=== PATIENT | female | born 1995 | race Caucasian/White ===

== ENCOUNTER 2019-02-08 16:14 | Observation (INO) | payer SELFPAY ==
[~2019-02-08] VITALS: Ht 160 cm; Wt 89.3 kg
[2019-02-08] MEDS ORDERED: LACTATED RINGERS 1,000 ML IV ONE (18:25)
[2019-02-08] MEDS ORDERED: ONDANSETRON 4 MG (ZOFRAN) ORAL DISSOLVE TAB SL STA (18:39)
[2019-02-08] MEDS ORDERED: FAMOTIDINE 20MG/2ML IV (PEPCID) IV STA (18:39)
[2019-02-08] MEDS ORDERED: ANTACID SUSP 30 ML UDC (MYLANTA) PO ONE (18:45)
[2019-02-08] MEDS ORDERED: LIDOCAINE 2% VISCOUS 15 ML UDC PO ONE (18:45)
[2019-02-08 18:46] LABS: BILIRUBIN,URINE NEGATIVE (NEGATIVE); CLARITY,URINE CLEAR; COLOR,URINE YELLOW; GLUCOSE, URINE (UA) NEGATIVE (NEGATIVE); KETONES,URINE NEGATIVE (NEGATIVE); LEUKOCYTE ESTERASE ,URINE TRACE (NEGATIVE); NITRITE,URINE NEGATIVE (NEGATIVE); PROTEIN,URINE TRACE (NEGATIVE)
[2019-02-08 18:56] LABS: ALANINE AMINOTRANSFERASE 23 U/L (0-55); ALBUMIN 4.3 GM/DL (3.2-4.5); ALKALINE PHOSPHATASE 57 U/L (40-136); BUN/CREATININE RATIO 16; CALCIUM 9.1 MG/DL (8.5-10.1); CARBON DIOXIDE 18 MMOL/L (21-32); CHLORIDE 101 MMOL/L (98-107); CREATININE SERUM 0.75 MG/DL (0.60-1.30); GFR ESTIMATED > 60; GLUCOSE 100 MG/DL (70-105); POTASSIUM 3.4 MMOL/L (3.6-5.0); SODIUM 134 MMOL/L (135-145)
[2019-02-08 19:02] LABS: BACTERIA,URINE TRACE /HPF; RBC,URINE 0-2 /HPF
[2019-02-08 19:03] LABS: AMORPHOUS SEDIMENT,UR MOD AMOR URATES /LPF
[2019-02-08 19:03] LABS: BASOPHILS % (AUTO) 0 % (0-10); EOSINOPHILS % (AUTO) 0 % (0-10); HEMATOCRIT 38 % (35-52); HEMOGLOBIN 12.8 G/DL (11.5-16.0); LYMPHOCYTES % (AUTO) 5 % (12-44); MEAN CORPUSCULAR HEMOGLOBIN 29 PG (25-34); MEAN CORPUSCULAR HGB CONC 34 G/DL (32-36); MEAN CORPUSCULAR VOLUME 85 FL (80-99); MEAN PLATELET VOLUME 10.5 FL (7.4-10.4); MONOCYTES # (AUTO) 0.9 X 10^3 (0.0-1.0); MONOCYTES % (AUTO) 4 % (0-12); NEUTROPHILS # (AUTO) 20.5 X 10^3 (1.8-7.8); NEUTROPHILS % (AUTO) 91 % (42-75); PLATELET COUNT 318 10^3/uL (130-400); RED CELL DISTRIBUTION WIDTH 14.8 % (10.0-14.5); WHITE BLOOD COUNT 22.4 10^3/uL (4.3-11.0)
[2019-02-08 19:36] LABS: BAND NEUTROPHILS 8 %; LYMPHOCYTES % (MANUAL) 6 %; MONOCYTES % (MANUAL) 3 %; NEUTROPHILS % (MANUAL) 83 %; RBC MORPH NORMAL
[2019-02-08] MEDS ORDERED: HOLD METFORMIN - RECEIVED CONTRAST 20 ML VIAL IV SCH (20:00)
[2019-02-08] MEDS ORDERED: NS 100 ML (IVPB) BAG IV ONE (20:00)
[2019-02-08] MEDS ORDERED: IOHEXOL 350 MG/ML 100 ML (OMNIPAQUE 350) VIAL IV ONE (20:00)
[2019-02-08] MEDS ORDERED: fentaNYL INJECTION 100 MCG/2 ML AMP IVP ONE (20:00)
[2019-02-08] MEDS ORDERED: CATHETER FLUSH 10 ML SYR IV PRN (20:00)
--- NOTE | 2019-02-08 20:28 | Diagnostic Imaging Report ---
PROCEDURE: CT abdomen and pelvis with contrast. TECHNIQUE: Multiple contiguous axial images were obtained through the abdomen and pelvis after administration of intravenous contrast. Auto Exposure Controls were utilized during the CT exam to meet ALARA standards for radiation dose reduction. INDICATION: Abdominal pain with nausea and vomiting. No priors. There is an increased intraluminal fluid load within the distal small bowel and the proximal colon. No substantial pericolonic or perienteric edema is found. No significant bowel wall thickening. No pneumatosis or free air. Celiac and superior mesenteric vessels showed no appreciable clot. There is mild hepatic steatosis and mild hepatomegaly. The liver nonfocal. The gallbladder, bile ducts, spleen, adrenals, pancreas all negative. The kidneys unobstructed and normal. There is no appendicitis or diverticulitis. The uterus, adnexa, and urinary bladder appeared normal. IMPRESSION: 1. No bowel, biliary or urinary tract obstruction. No focal inflammatory process. There is some increased fluid loading within the lumen of the distal small and proximal large bowel without obstruction which may reflect a hypermotile state; correlate with diarrhea. Nonspecific gastroenteritis could also cause this appearance. 2. No other significant finding aside from borderline fatty liver and mild hepatomegaly Dictated by: Dictated on workstation # [id number]
[2019-02-08] MEDS ORDERED: KETOROLAC 30 MG/ML VIAL IVP ONE (21:00)
--- NOTE | 2019-02-08 21:25 | ED Abdominal Pain ---
General Chief Complaint: Abdominal/GI Problems Stated Complaint: STOMACH PAIN/VOMITING Nursing Triage Note: PT TO ED W/ C/O ABD PAIN ONSET YESTERDAY WORSE TODAY. REPORTS VOMITING X2 THIS AM ET LAST BM YESTERDAY. NO OTHER C/O VOICED Sepsis Screen: No Definite Risk Source of Information: Patient Exam Limitations: No Limitations History of Present Illness Date Seen by Provider: Feb 08, 2019 Time Seen by Provider: 19:25 Initial Comments This 24-year-old young lady presents to the emergency room with complaints of left-sided abdominal pain that started yesterday and has been worsening today. She vomited twice this morning. She denies any constipation or diarrhea. She is afebrile but is tachycardic. She denies any urinary or vaginal symptoms. She reports pain with walking, movement, or riding in the car. Patient is in town visiting but lives out of town. She was planning to drive home tonight. Allergies and Home Medications Allergies Coded Allergies: No Known Drug Allergies (Unverified , 02/08/19) Patient Home Medication List Home Medication List Reviewed: Yes Review of Systems Review of Systems Constitutional: no symptoms reported EENTM: No Symptoms Reported Respiratory: No Symptoms Reported Cardiovascular: See HPI Gastrointestinal: See HPI Genitourinary: No Symptoms Reported Musculoskeletal: no symptoms reported Skin: no symptoms reported Psychiatric/Neurological: No Symptoms Reported Endocrine: No Symptoms Reported Past Jmibjdb-Aiirvt-Wrolsn Hx Past Med/Social Hx: Reviewed Nursing Past Med/Soc Hx Patient Social History Alcohol Use: Occasionally Uses Recreational Drug Use: No Smoking Status: Current Everyday Smoker Type Used: Cigarettes Recent Foreign Travel: No Contact w/Someone Who Travel: No Recent Infectious Disease Expo: No Physical Abuse: No Sexual Abuse: No Mistreated: No Fear: No Past Medical History Surgeries: No Respiratory: No Cardiac: No Neurological: No Genitourinary: No Gastrointestinal: No Musculoskeletal: No Endocrine: Yes (THYROID) Hypothyroidsim Cancer: No Psychosocial: No Integumentary: No Physical Exam Vital Signs Vital Signs - First Documented 02/08/19 16:25 Temp 37.4 Pulse 124 Resp 20 B/P (MAP) 107/74 (85) Pulse Ox 96 O2 Delivery Room Air Capillary Refill : Less Than 3 Seconds Height/Weight/BMI Height: '" Weight: lbs. oz. kg; 37.00 BMI Method: General Appearance: WD/WN, no apparent distress HEENT: PERRL/EOMI, normal ENT inspection, pharynx normal Neck: normal inspection Respiratory: lungs clear, normal breath sounds, no respiratory distress, no accessory muscle use Cardiovascular: no edema, no murmur, tachycardia Gastrointestinal: normal bowel sounds, soft, tenderness (throughout the left abdomen) Extremities: normal inspection, no pedal edema Neurologic/Psychiatric: manager heart II-XII nml as tested, no motor/sensory deficits, oriented x 3 Skin: normal color, warm/dry Progress/Results/Core Measures Results/Orders Lab Results Laboratory Tests Test 02/08/19 16:54 02/08/19 18:50 Range/Units Urine Color YELLOW Urine Clarity CLEAR Urine pH 6.0 5-9 Urine Specific [place] >=1.030 1.016-1.022 Urine Protein TRACE NEGATIVE Urine Glucose (UA) NEGATIVE NEGATIVE Urine Ketones NEGATIVE NEGATIVE Urine Nitrite NEGATIVE NEGATIVE Urine Bilirubin NEGATIVE NEGATIVE Urine Urobilinogen 0.2 < = 1.0 MG/DL Urine Leukocyte Esterase TRACE NEGATIVE Urine RBC (Auto) TRACE-I NEGATIVE Urine RBC 0-2 /HPF Urine WBC 5-10 H /HPF Urine Squamous Epithelial Cells 10-25 H /HPF Urine Crystals PRESENT H /LPF Urine Amorphous Sediment MOD HERLINDA URATES H /LPF Urine Bacteria TRACE /HPF Urine Casts NONE /LPF Urine Mucus NEGATIVE /LPF Urine Culture Indicated YES Sodium Level 134 L 135-145 MMOL/L Potassium Level 3.4 L 3.6-5.0 MMOL/L Chloride Level 101 98-107 MMOL/L Carbon Dioxide Level 18 L 21-32 MMOL/L Anion Gap 15 H 5-14 MMOL/L Blood Urea Nitrogen 12 7-18 MG/DL Creatinine 0.75 0.60-1.30 MG/DL Estimat Glomerular Filtration Rate > 60 BUN/Creatinine Ratio 16 Glucose Level 100 70-105 MG/DL Calcium Level 9.1 8.5-10.1 MG/DL Corrected Calcium 8.9 8.5-10.1 MG/DL Total Bilirubin 1.0 0.1-1.0 MG/DL Aspartate Amino Transf (AST/SGOT) 19 5-34 U/L Alanine Aminotransferase (ALT/SGPT) 23 0-55 U/L Alkaline Phosphatase 57 40-136 U/L C-Reactive Protein High Sensitivity 21.37 H 0.00-0.50 MG/DL Total Protein 8.0 6.4-8.2 GM/DL Albumin 4.3 3.2-4.5 GM/DL Lipase 7 L 8-78 U/L Serum Test, Qualitative NEGATIVE NEGATIVE White Blood Count 22.4 H 4.3-11.0 10^3/uL Red Blood Count 4.47 4.35-5.85 10^6/uL Hemoglobin 12.8 11.5-16.0 G/DL Hematocrit 38 35-52 % Mean Corpuscular Volume 85 80-99 FL Mean Corpuscular Hemoglobin 29 25-34 PG Mean Corpuscular Hemoglobin Concent 34 32-36 G/DL Red Cell Distribution Width 14.8 H 10.0-14.5 % Platelet Count 318 130-400 10^3/uL Mean Platelet Volume 10.5 H 7.4-10.4 FL Neutrophils (%) (Auto) 91 H 42-75 % Lymphocytes (%) (Auto) 5 L 12-44 % Monocytes (%) (Auto) 4 0-12 % Eosinophils (%) (Auto) 0 0-10 % Basophils (%) (Auto) 0 0-10 % Neutrophils # (Auto) 20.5 H 1.8-7.8 X 10^3 Lymphocytes # (Auto) 1.0 1.0-4.0 X 10^3 Monocytes # (Auto) 0.9 0.0-1.0 X 10^3 Eosinophils # (Auto) 0.0 0.0-0.3 10^3/uL Basophils # (Auto) 0.0 0.0-0.1 10^3/uL Neutrophils % (Manual) 83 % Lymphocytes % (Manual) 6 % Monocytes % (Manual) 3 % Band Neutrophils 8 % Blood Morphology Comment NORMAL My Orders Orders - ALEXA MICHAELS MD Comprehensive Metabolic Panel (02/08/19 18:25) Hs C Reactive Protein (02/08/19 18:25) Hcg,Qualitative Serum (02/08/19 18:25) Ed Iv/Invasive Line Start (02/08/19 18:25) Lactated Ringers (Lr 1000 Ml Iv Solution (02/08/19 18:25) Lipase (02/08/19 18:39) Ua Culture If Indicated (02/08/19 18:39) Ondansetron Oral Dissolve Tab (Zofran (02/08/19 18:39) Lidocaine 2% Viscous 15 Ml (Xylocaine Vi (02/08/19 18:45) Antacid Suspension (Mylanta Suspension (02/08/19 18:45) Famotidine Injection (Pepcid Injection) (02/08/19 18:39) Cbc With Automated Diff (02/08/19 18:48) Urine Culture (02/08/19 16:54) Manual Differential (02/08/19 18:50) Fentanyl Injection (Sublimaze Injection (02/08/19 20:00) Ct Abdomen/Pelvis W (02/08/19 19:50) Iohexol Injection (Omnipaque 350 Mg/Ml 1 (02/08/19 20:00) Received Contrast (Hold Metformin- Contr (02/08/19 20:00) Ns (Ivpb) (Sodium Chloride 0.9% Ivpb Bag (02/08/19 20:00) Sodium Chloride Flush (Catheter Flush Sy (02/08/19 20:00) Ketorolac Injection (Toradol Injection) (02/08/19 21:00) Blood Culture (02/08/19 21:18) Vital Signs Adult Sepsis Patie Q15M (02/08/19 21:18) Remove Rings In Anticipation O (02/08/19 21:18) Lactic Acid Analyzer (02/08/19 21:18) Ceftriaxone For Iv Use (Rocephin For I (02/08/19 21:30) Medications Given in ED Current Medications Medications Dose Ordered Sig/Lucita Route Start Time Stop Time Status Last Admin Dose Admin Al Hydrox/Mg Hydrox/Simethicone 30 ml ONCE ONCE PO 02/08/19 18:45 02/08/19 18:46 DC 02/08/19 18:54 30 ML Fentanyl Citrate 75 mcg ONCE ONCE IVP 02/08/19 20:00 02/08/19 20:01 DC 02/08/19 20:44 75 MCG Iohexol 100 ml ONCE ONCE IV 02/08/19 20:00 02/08/19 20:01 DC 02/08/19 20:09 100 ML Lactated Ringer's 1,000 ml @ 0 mls/hr Q0M ONCE IV 02/08/19 18:25 02/08/19 18:26 DC 02/08/19 18:54 1,000 MLS/HR Lidocaine HCl 15 ml ONCE ONCE PO 02/08/19 18:45 02/08/19 18:46 DC 02/08/19 18:54 15 ML Sodium Chloride 100 ml ONCE ONCE IV 02/08/19 20:00 02/08/19 20:01 DC 02/08/19 20:09 80 ML Vital Signs/I&O 02/08/19 16:25 Temp 37.4 Pulse 124 Resp 20 B/P (MAP) 107/74 (85) Pulse Ox 96 O2 Delivery Room Air 02/09/19 00:00 Intake Total 1000 ml Balance 1000 ml Blood Pressure Mean: 85 Progress Progress Note : Progress Note Patient's pain did not improve with GI cocktail and Pepcid. Pain was further treated with fentanyl and Toradol. WBC and CRP were significantly elevated. This prompted further evaluation with CT scan. There were no significant pathology is identified on imaging. There was suspicion of urinary tract infection. Due to patient's tachycardia and abnormal labs, she was admitted for observation and treatment of suspected sepsis. Rocephin was administered for antibiotic therapy. She received a liter of IV fluid. Diagnostic Imaging Diagonstic Imaging: CT Plain Films/CT/US/NM/MRI: abdomen, pelvis Comments CT abdomen and pelvis viewed by me and report reviewed. See report below: NAME: SEAMUS ERNANDEZ [facility] REC#: [id number] PT STATUS: REG ER : 1995 PHYSICIAN: ALEXA MICHAELS MD ADMIT DATE: 02/08/19/ER Signed Date of Exam:02/08/19 CT ABDOMEN/PELVIS W PROCEDURE: CT abdomen and pelvis with contrast. TECHNIQUE: Multiple contiguous axial images were obtained through the abdomen and pelvis after administration of intravenous contrast. Auto Exposure Controls were utilized during the CT exam to meet ALARA standards for radiation dose reduction. INDICATION: Abdominal pain with nausea and vomiting. No priors. There is an increased intraluminal fluid load within the distal small bowel and the proximal colon. No substantial pericolonic or perienteric edema is found. No significant bowel wall thickening. No pneumatosis or free air. Celiac and superior mesenteric vessels showed no appreciable clot. There is mild hepatic steatosis and mild hepatomegaly. The liver nonfocal. The gallbladder, bile ducts, spleen, adrenals, pancreas all negative. The kidneys unobstructed and normal. There is no appendicitis or diverticulitis. The uterus, adnexa, and urinary bladder appeared normal. IMPRESSION: 1. No bowel, biliary or urinary tract obstruction. No focal inflammatory process. There is some increased fluid loading within the lumen of the distal small and proximal large bowel without obstruction which may reflect a hypermotile state; correlate with diarrhea. Nonspecific gastroenteritis could also cause this appearance. 2. No other significant finding aside from borderline fatty liver and mild hepatomegaly Dictated by: Dictated on workstation # [id number] Dict: 02/08/192019 Trans: 02/08/192123 [facility] [id number] Interpreted by: JESSICA JIMENEZ Electronically signed by: JESSICA JIMENEZ 02/08/192123 Departure Communication (Admissions) Time/Spoke to Admitting Phy: 21:00 Dr. Gibson Impression Primary Impression: Sepsis Qualified Codes: A41.9 - Sepsis, unspecified organism Additional Impressions: UTI (urinary tract infection) Qualified Codes: N39.0 - Urinary tract infection, site not specified Left sided abdominal pain Disposition: ADMITTED INPATIENT Condition: Improved Admissions Decision to Admit Reason: Admit from ER (General) Decision to Admit/Date: Feb 08, 2019 Time/Decision to Admit Time: 20:50 Departure-Patient Inst. Referrals: NO,LOCAL PHYSICIAN (PCP/Family) Primary Care Physician ALEXA MICHAELS MD Feb 08, 2019 21:25
[2019-02-08] MEDS ORDERED: cefTRIAXone FOR IV USE 1,000 MG in WATER (STERILE) FOR INJECTION 10 ML IV ONE (21:30)
[2019-02-08] MEDS ORDERED: cefTRIAXone 1,000 MG IV (ROCEPHIN) VIAL ONE (22:37)
--- NOTE | 2019-02-08 23:07 | NUR ---
SEAMUS ERNANDEZ admitted to room 412, with an admitting diagnosis of sepsis, uti, left sided abd pain, on 02/08/19 from ed via , accompanied by staff.ESAMUS ERNANDEZ introduced to surroundings, call light, bed controls, phone, TV, temperature control, lights, meal times, smoking policy, visitor policy, side rail policy, bathrooms and showers. Patient Rights given to patient in the handbook. SEAMUS ERNANDEZ verbalizes understanding that [facility] is not responsible for the loss or damage to any personal effects or valuables that are kept in the patients possession during their hospitalization. The patient's plan of care was discussed with the patient, she verbalized understanding & denies any questions or concerns at this time. SEAMUS ERNANDEZ verbalizes understanding of Interdisciplinary Patient Education. Patient and/or family were informed about the Rapid Response Team and its purpose.
[2019-02-08 23:11] VITALS: BP 120/69
[2019-02-08] MEDS ORDERED: ONDANSETRON 4 MG/2 ML (SDV) Z0FRAN IV PRN (23:15)
[2019-02-08] MEDS ORDERED: NS IV 1000 ML 1,000 ML ONE (23:33)
[2019-02-08] MEDS: NS IV 1000 ML 1,000 ML IV SCH (23:41)
[2019-02-09] VITALS (13 sets, daily range): BP systolic 100–120; BP diastolic 50–74
[2019-02-09] MEDS: fentaNYL INJECTION 100 MCG/2 ML AMP IV PRN ×2 (00:36→06:25)
[2019-02-09 05:48] LABS: BASOPHILS % (AUTO) 0 % (0-10); EOSINOPHILS # (AUTO) 0.1 10^3/uL (0.0-0.3); EOSINOPHILS % (AUTO) 1 % (0-10); HEMATOCRIT 36 % (35-52); HEMOGLOBIN 11.5 G/DL (11.5-16.0); LYMPHOCYTES # (AUTO) 1.4 X 10^3 (1.0-4.0); LYMPHOCYTES % (AUTO) 12 % (12-44); MEAN CORPUSCULAR HEMOGLOBIN 28 PG (25-34); MEAN CORPUSCULAR HGB CONC 32 G/DL (32-36); MEAN CORPUSCULAR VOLUME 87 FL (80-99); MEAN PLATELET VOLUME 10.9 FL (7.4-10.4); MONOCYTES # (AUTO) 0.6 X 10^3 (0.0-1.0); MONOCYTES % (AUTO) 6 % (0-12); NEUTROPHILS # (AUTO) 9.3 X 10^3 (1.8-7.8); NEUTROPHILS % (AUTO) 82 % (42-75); PLATELET COUNT 285 10^3/uL (130-400); WHITE BLOOD COUNT 11.4 10^3/uL (4.3-11.0)
[2019-02-09 06:06] LABS: BUN/CREATININE RATIO 15; CALCIUM 8.3 MG/DL (8.5-10.1); CARBON DIOXIDE 20 MMOL/L (21-32); CHLORIDE 107 MMOL/L (98-107); CREATININE SERUM 0.74 MG/DL (0.60-1.30); GFR ESTIMATED > 60; GLUCOSE 88 MG/DL (70-105); POTASSIUM 3.5 MMOL/L (3.6-5.0); SODIUM 137 MMOL/L (135-145)
[2019-02-09] MEDS: NS IV 1000 ML 1,000 ML IV SCH ×4 (06:26→20:46)
--- NOTE | 2019-02-09 08:07 | NUR ---
0027-pt has order for telemetry-no telemetry units are available-this rn notified dr. patel- hourly vitals signs ordered until a telemetry units is obtained.
[2019-02-09] MEDS ORDERED: morphine INJ 4 MG/ML 1 ML (VIAL/SYRINGE) ONE (09:51)
[2019-02-09] MEDS: morphine INJ 4 MG/ML 1 ML (VIAL/SYRINGE) IVP PRN ×2 (09:57→17:20)
--- NOTE | 2019-02-09 09:59 | History & Physical-Hospitalist ---
History of Present Illness HPI/Chief Complaint Pt is a 24yoCF presents to the emergency room with a chief complaint of right- sided abdominal pain and vomiting. She reports that this started yesterday. She denies vomiting to me but reported history to the ER vomiting 2 times yesterday. She has never had previous episodes like this. Her last menstrual period was last week. Her last sexual encounter was over 6 months ago. She denies any constipation or diarrhea. She describes her pain as periumbilical into the right side and sharp and crampy. She reports minimal improvement with current pain regimen. She underwent CT in the emergency room which revealed possible enteritis but no appendicitis and normal uterus and adnexa. She has not have a leukocytosis of 22,000 and CRP of 21. She was admitted for obs. Source: patient Date Seen 02/09/19 Time Seen by a Provider: 09:55 Attending Physician Cinthia Gibson MD PCP No,Local Physician Referring Physician Date of Admission Feb 08, 2019 at 21:22 Home Medications & Allergies Home Medications Reviewed patient Home Medication Reconciliation performed by pharmacy medication reconciliations survey technician and/or nursing. Patients Allergies have been reviewed. Allergies Allergies Coded Allergies latex (Verified Allergy, Unknown, 02/09/19) Past Mdpkxbp-Lsmybv-Ixxusd Hx Past Med/Social Hx: Reviewed Nursing Past Med/Soc Hx Patient Social History Alcohol Use: Occasionally Uses Recreational Drug Use: No Smoking Status: Current Everyday Smoker Type Used: Cigarettes Recent Foreign Travel: No Contact w/other who traveled: No Recent Infectious Disease Expo: No Immunizations Up To Date Date of Influenza Vaccine: Nov 20, 2018 Past Medical History Endocrine: Hypothyroidsim Family History Autism G8 BROTHER G8 BROTHER Degenerative disc disease 19 MOTHER FH: COPD (chronic obstructive pulmonary disease) 19 FATHER FH: arthritis 19 MOTHER Review of Systems Constitutional: No chills, No fever EENTM: no symptoms reported Respiratory: no symptoms reported Cardiovascular: no symptoms reported Gastrointestinal: see HPI Genitourinary: No discharge, No dysuria, No frequency Musculoskeletal: no symptoms reported Skin: no symptoms reported Psychiatric/Neurological: No Symptoms Reported Physical Exam Physical Exam Vital Signs Vital Signs - First Documented 02/08/19 16:25 Temp 37.4 Pulse 124 Resp 20 B/P (MAP) 107/74 (85) Pulse Ox 96 O2 Delivery Room Air Capillary Refill : Less Than 3 SecondsLess Than 3 Seconds Height, Weight, BMI Height: '" Weight: lbs. oz. kg; 34.88 BMI Method: General Appearance: No Apparent Distress, Obese Respiratory: Lungs Clear, No Respiratory Distress Cardiovascular: Regular Rate, Rhythm, No Murmur Gastrointestinal: Normal Bowel Sounds; No Distended, No Guarding; Tenderness (mild right lower quadrant) Extremity: No Calf Tenderness, No Pedal Edema Neurologic/Psychiatric: Alert, Oriented x3, Normal Mood/Affect Skin: Normal Color, Warm/Dry Results Results/Procedures Labs Laboratory Tests 02/08/19 16:54 02/08/19 18:50 02/09/19 05:21 02/10/19 09:35 Patient resulted labs reviewed. Assessment/Plan Admission Diagnosis Gastroenteritis Admission Status: Observation Assessment and Plan Viral Gastroenteritis Likely all due to gastroentertis Discused with surgery given persistent pain and right sided symptoms who will eval for appendicitis Discussed with Dr Yost from OB and though we are unable to do an USG reviewed CT with him and he states unconcerning for ovarian torsion Change Fentanyl to Morphine Continue supportive care Bacteruia Will continue Rocephin given leukocytosis Await culture Clinical Quality Measures DVT/VTE Risk/Contraindication: Risk Factor Score Per Nursin RFS Level Per Nursing on Admit: 4+=Very High CINTHIA GIBSON MD Feb 09, 2019 09:59
--- NOTE | 2019-02-09 10:00 | NUR ---
MS 2MG IV FOR PAIN 09/29. MADE NPO PER NEW ORDER AT THIS TIME.
[2019-02-09] MEDS ORDERED: AZITHROMYCIN INJECTION 500 MG in NS (IVPB) 250 ML IV ONE (10:15)
--- NOTE | 2019-02-09 10:25 | Consultation - Surgery ---
COURTNEY WILKES MED STUDENT 02/09/19 1025: History of Present Illness History of Present Illness Patient Consulted On(estela/time) 02/09/19 10:19 Date Seen by Provider: Feb 09, 2019 Time Seen by Provider: 10:00 History of Present Illness Ms. Broussard is in the hospital today due to abdominal pain and nausea with vomiting. She reports beginning to feel periumbilical cramping two days ago, and woke up yesterday with worsened pain and with nausea. She vomited several times yesterday, describes having brown vomit, no blood. She describes the pain as a cramping with sharp pains when exacerbated. The pain is exacerbated by movement, she felt short of breath at times because it was hurting when she breathed. The pain is a constant 3/10, 8/10 when exacerbated. The area of the abdomen where she has the pain is tender to the touch. The pain does not travel anywhere, and the only thing that helps is by laying on her side. Reports that pain medication in ER did not alleviate the pain much. Denies having any diarrhea, constipation, blood in stool, fevers, or chills. 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 Allergies and Home Medications Allergies Coded Allergies: No Known Drug Allergies (Unverified , 02/08/19) Past Ymeilbc-Rywgzw-Avxcmi Hx Patient Social History Alcohol Use: Occasionally Uses Recreational Drug Use: No Smoking Status: Current Everyday Smoker Cigarettes Per Day: 4 Type Used: Cigarettes Recent Foreign Travel: No Contact w/Someone Who Travel: No Recent Infectious Disease Expo: No Immunizations Up To Date Date of Influenza Vaccine: Nov 20, 2018 Surgeries History of Surgeries: No Respiratory History of Respiratory Disorde: No Cardiovascular History of Cardiac Disorders: No Neurological History of Neurological Disord: No Genitourinary History of Genitourinary Disor: Yes (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) Gastrointestinal History of Gastrointestinal Di: No Musculoskeletal History of Musculoskeletal Dis: No Endocrine History of Endocrine Disorders: Yes (THYROID) Endocrine Disorders: Hypothyroidsim Cancer History of Cancer: No Psychosocial History of Psychiatric Problem: No Integumentary History of Skin or Integumenta: No Family Medical History Family Medial History: Autism G8 BROTHER G8 BROTHER Degenerative disc disease 19 MOTHER FH: COPD (chronic obstructive pulmonary disease) 19 FATHER FH: arthritis 19 MOTHER Review of Systems-General Constitutional: No chills, No dizziness, No fever; malaise EENTM: No nose congestion, No throat pain Respiratory: No cough; short of breath (due to pain with breathing, none today) Cardiovascular: No chest pain, No palpitations Gastrointestinal: abdominal pain (center of abdomen, doesn't associate with umbilicus); No constipation, No diarrhea, No hematemesis; nausea (none today), vomiting (none today) Genitourinary: No dysuria, No hematuria Skin: No change in color, No pruritus, No rash Psychiatric/Neurological: Denies Numbness, Denies Paresthesia Physical Exam-General Problems Physical Exam Vital Signs Vital Signs - First Documented 02/08/19 16:25 Temp 37.4 Pulse 124 Resp 20 B/P (MAP) 107/74 (85) Pulse Ox 96 O2 Delivery Room Air Capillary Refill : Less Than 3 SecondsLess Than 3 Seconds General Appearance: no apparent distress, obese HEENT: PERRL/EOMI; No scleral icterus (R), No scleral icterus (L), No pale conjunctivae (R), No pale conjunctivae (L) Neck: non-tender, supple, normal inspection Respiratory: lungs clear, normal breath sounds, no respiratory distress, no accessory muscle use Cardiovascular: no murmur, tachycardia Peripheral Pulses: 2+ Dorsalis Pedis (R), 2+ Left Dors-Pedis (L), 2+ Radial Pulses (R), 2+ Radial Pulses (L) Gastrointestinal: normal bowel sounds, soft, no organomegaly, tenderness (mild tenderness to LUQ, and all lower abdomen) Extremities: normal inspection, no pedal edema, no calf tenderness Neurologic/Psychiatric: alert, normal mood/affect Skin: normal color, warm/dry Data Review Labs Laboratory Tests 02/08/19 16:54: Urine Color YELLOW, Urine Clarity CLEAR, Urine pH 6.0, Urine Specific Flushing >=1.030, Urine Protein TRACE, Urine Glucose (UA) NEGATIVE, Urine Ketones NEGATIVE, Urine Nitrite NEGATIVE, Urine Bilirubin NEGATIVE, Urine Urobilinogen 0.2, Urine Leukocyte Esterase TRACE, Urine RBC (Auto) TRACE-I, Urine RBC 0-2, Urine WBC 5-10H, Urine Squamous Epithelial Cells 10-25H, Urine Crystals PRESENTH , Urine Amorphous Sediment MOD HERLINDA URATESH, Urine Bacteria TRACE, Urine Casts NONE, Urine Mucus NEGATIVE, Urine Culture Indicated YES, Sodium Level 134L, Potassium Level 3.4L, Chloride Level 101, Carbon Dioxide Level 18L, Anion Gap 15H, Blood Urea Nitrogen 12, Creatinine 0.75, Estimat Glomerular Filtration Rate > 60, BUN/Creatinine Ratio 16, Glucose Level 100, Calcium Level 9.1, Corrected Calcium 8.9, Total Bilirubin 1.0, Aspartate Amino Transf (AST/SGOT) 19, Alanine Aminotransferase (ALT/SGPT) 23, Alkaline Phosphatase 57, C-Reactive Protein High Sensitivity 21.37H, Total Protein 8.0, Albumin 4.3, Lipase 7L, Serum Test, Qualitative NEGATIVE 02/08/19 18:50: White Blood Count 22.4H, Red Blood Count 4.47, Hemoglobin 12.8, Hematocrit 38, Mean Corpuscular Volume 85, Mean Corpuscular Hemoglobin 29, Mean Corpuscular Hemoglobin Concent 34, Red Cell Distribution Width 14.8H, Platelet Count 318, Mean Platelet Volume 10.5H, Neutrophils (%) (Auto) 91H, Lymphocytes (%) (Auto) 5L, Monocytes (%) (Auto) 4, Eosinophils (%) (Auto) 0, Basophils (%) (Auto) 0, Neutrophils # (Auto) 20.5H, Lymphocytes # (Auto) 1.0, Monocytes # (Auto) 0.9, Eosinophils # (Auto) 0.0, Basophils # (Auto) 0.0, Neutrophils % (Manual) 83, Lymphocytes % (Manual) 6, Monocytes % (Manual) 3, Band Neutrophils 8, Blood Morphology Comment NORMAL 02/08/19 22:19: Lactic Acid Level 0.90 02/09/19 05:21: Sodium Level 137, Potassium Level 3.5L, Chloride Level 107, Carbon Dioxide Level 20L, Anion Gap 10, Blood Urea Nitrogen 11, Creatinine 0.74, Estimat Glomerular Filtration Rate > 60, BUN/Creatinine Ratio 15, Glucose Level 88, Calcium Level 8.3L, C-Reactive Protein High Sensitivity > 16.00H, White Blood Count 11.4H, Red Blood Count 4.11L, Hemoglobin 11.5, Hematocrit 36, Mean Corpuscular Volume 87, Mean Corpuscular Hemoglobin 28, Mean Corpuscular Hemoglobin Concent 32, Red Cell Distribution Width 15.0H, Platelet Count 285, Mean Platelet Volume 10.9H, Neutrophils (%) (Auto) 82H, Lymphocytes (%) (Auto) 12, Monocytes (%) (Auto) 6, Eosinophils (%) (Auto) 1, Basophils (%) (Auto) 0, Neutrophils # (Auto) 9.3H, Lymphocytes # (Auto) 1.4, Monocytes # (Auto) 0.6, Eosinophils # (Auto) 0.1, Basophils # (Auto) 0.0 Assessment/Plan Assessment/Plan Assessment/Plan Periumbilical abdominal pain UTI Possible enteritis Possible enteritis, will continue NPO w/ antibiotics, pain and nausea troy gement, and monitor labs and symptoms. Will continue to follow in case surgical intervention becomes necessary. Clinical Quality Measures DVT/VTE Risk/Contraindication: Risk Factor Score Per Nursin RFS Level Per Nursing on Admit: 4+=Very High EDWARD PRETTY DO 02/09/19 1242: History of Present Illness History of Present Illness History of Present Illness consult requested by Dr. Gibson for abdominal pain. patient is a 24 year old female who has been having periumbilical pain, nausea and emesis for 3 days. Pain is cramping to sharp pain. No radiation of pain. Pain is worse with nausea and had 3 episodes of emesis yesterday, none today. Pain is constant and varies in intensity. Resting has made it better. Patient had a ct scan that demonstrates some fluid in the distal portion of the small bowel and large bowel. WBC was 22.4 now 11.4. Allergies and Home Medications Allergies Coded Allergies: No Known Drug Allergies (Unverified , 02/08/19) Patient Home Medication List Home Medication List Reviewed: Yes Past Sfnpanr-Knpkzc-Jybcrl Hx Reviewed Nursing Assessment Reviewed/Agree w Nursing PMH: Yes Family Medical History Significant Family History: No Pertinent Family Hx Family Medial History: Autism G8 BROTHER G8 BROTHER Degenerative disc disease 19 MOTHER FH: COPD (chronic obstructive pulmonary disease) 19 FATHER FH: arthritis 19 MOTHER Review of Systems-General Constitutional: see HPI EENTM: no symptoms reported Respiratory: no symptoms reported Cardiovascular: no symptoms reported Gastrointestinal: see HPI Genitourinary: no symptoms reported Musculoskeletal: no symptoms reported Skin: no symptoms reported Psychiatric/Neurological: No Symptoms Reported Physical Exam-General Problems Physical Exam General Appearance: WD/WN, no apparent distress, obese Neck: non-tender, supple Respiratory: chest non-tender, no respiratory distress, no accessory muscle use Cardiovascular: regular rate, rhythm Gastrointestinal: soft, no organomegaly, tenderness (minimal tenderness periumbilical with deep palpation no guarding or rebound tenderness.) Rectal: deferred Extremities: normal inspection; No no pedal edema 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, alert, normal mood/affect, oriented x 3 Skin: normal color, warm/dry Lymphatic: no adenopathy Assessment/Plan Assessment/Plan Assessment/Plan Periumbilical abdominal pain UTI Possible enteritis will make npo for bowel rest continue on abx wbc improving- follow no surgical intervention at this time will follow Supervisory-Addendum Brief Verification & Attestation Participated in pt care: history, MDM, physical Personally performed: exam, history, MDM, supervision of care Care discussed with: Medical Student Procedures: n/a Results interpretation: Verified all documentation Verification and Attestation of Medical Student E/M Service A medical student performed and documented this service in my presence. I reviewed and verified all information documented by the medical student and made modifications to such information, when appropriate. I personally performed the physical exam and medical decision making. Edward Pretty, Feb 09, 2019,12:50 COURTNEY WILKES MED STUDENT Feb 09, 2019 10:25 EDWARD PRETTY DO Feb 09, 2019 12:42
--- NOTE | 2019-02-09 17:20 | NUR ---
MS 2MG IV FOR ABD PAIN.
[2019-02-09] MEDS: cefTRIAXone 1,000 MG/SWFI 10 ML IV PUSH IV SCH ×2 (20:46)
[2019-02-09] MEDS: KETOROLAC 15 MG/ML VIAL IV PRN (20:47)
[2019-02-10] MEDS: NS IV 1000 ML 1,000 ML IV SCH ×2 (03:38→10:56)
[2019-02-10 04:20] VITALS: BP 110/61
[2019-02-10 08:00] VITALS: BP 112/72
[2019-02-10] MEDS: KETOROLAC 15 MG/ML VIAL IV PRN ×2 (08:01→16:59)
--- NOTE | 2019-02-10 08:07 | Progress Note - Surgery ---
COURTNEY WILKES MED STUDENT 02/10/19 0807: Subjective Date Seen by a Provider: Feb 10, 2019 Time Seen by a Provider: 07:50 Subjective/Events-last exam Ms. Broussard reports feeling somewhat better today, she reports her pain has improved, having less pain at rest. She still has 8/10 pain when she ambu lates, but describes it less as sharp and more as cramping today. Her cramping pain at rest is 4/10, but no longer constant. Denies having any nausea or vomiting since she was last seen. Review of Systems General: No Chills, No Fatigue HEENT: No Sinus Congestion, No Post Nasal Drip, No Sore Throat Pulmonary: No Dyspnea, No Cough Cardiovascular: No: Chest Pain Gastrointestinal: Abdominal Pain; No: Nausea, Vomiting, Diarrhea, Constipation, Melena Genitourinary: No Dysuria, No Hematuria Neurological: No: Numbness, Other (denies paresthesias) Focused Exam Lactate Level 02/08/19 22:19: Lactic Acid Level 0.90 Objective Exam Vital Signs Date Time Temp Pulse Resp B/P (MAP) Pulse Ox O2 Delivery O2 Flow Rate FiO2 02/10/19 07:00 68 02/10/19 04:20 36.1 86 18 110/61 (77) 96 Room Air 02/10/19 01:00 77 02/09/19 23:50 36.0 86 18 108/53 (71) 97 Room Air 02/09/19 20:35 Room Air 02/09/19 20:28 37.3 93 18 112/55 (74) 94 Room Air 02/09/19 19:00 85 02/09/19 16:02 37.3 72 20 117/53 (74) 97 Room Air 02/09/19 13:46 86 02/09/19 12:00 36.8 88 18 120/56 (77) 97 Room Air 02/09/19 08:30 113 104/50 (68) 98 Room Air I & O 02/10/19 07:00 Intake Total 3380 ml Balance 3380 ml Capillary Refill : Less Than 3 SecondsLess Than 3 Seconds General Appearance: No Apparent Distress, Obese HEENT: PERRL/EOMI; No Pale Conjunctivae (L), No Pale Conjunctivae (R), No Scleral Icterus (L), No Scleral Icterus (R) Neck: Normal Inspection, Non Tender, Supple Respiratory: Lungs Clear, Normal Breath Sounds, No Accessory Muscle Use, No Respiratory Distress Cardiovascular: Regular Rate, Rhythm, No Edema, No Murmur, Normal Peripheral Pulses Peripheral Pulses: 2+ Dorsalis Pedis (R), 2+ Left Dors-Pedis (L), 2+ Radial Pulses (R), 2+ Radial Pulses (L) Gastrointestinal: soft, no organomegaly, tenderness (minimal tenderness periumbilical with deep palpation no guarding or rebound tenderness.) Extremity: Non Tender, No Calf Tenderness, No Pedal Edema Neurologic/Psychiatric: Alert, Oriented x3, Normal Mood/Affect Skin: Normal Color, Warm/Dry Lymphatic: No Adenopathy Results Lab Microbiology 02/08/19 Blood Culture - Preliminary, Resulted Staph, 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 Continue NPO for bowel rest, continue antibiotics. Check WBC count when labs are drawn. No surgical intervention at this time, will follow. Clinical Quality Measures DVT/VTE Risk/Contraindication: Risk Factor Score Per Nursin RFS Level Per Nursing on Admit: 4+=Very High ISACC ALCOCER DO 02/10/19 1255: Subjective Subjective/Events-last exam Pain feeling better. Wanting food. Denies n/v fever sweats chills shortness of breath or chest pain. WBC down. Objective Exam General Appearance: No Apparent Distress, Obese HEENT: PERRL/EOMI Neck: Normal Inspection, Non Tender, Supple Respiratory: Chest Non Tender, No Accessory Muscle Use, No Respiratory Distress Cardiovascular: Regular Rate, Rhythm Gastrointestinal: non tender, soft, no organomegaly Extremity: Non Tender, No Calf Tenderness Neurologic/Psychiatric: Alert, Oriented x3, Normal Mood/Affect Skin: Normal Color, Warm/Dry Lymphatic: No Adenopathy Assessment/Plan Assessment/Plan Assessment/Plan Periumbilical abdominal pain UTI Possible enteritis patient feeling better. npo- will start on diet if tolerates okay to dc from surgical standpoint Supervisory-Addendum Brief Verification & Attestation Participated in pt care: history, MDM, physical Personally performed: exam, history, MDM, supervision of care Care discussed with: Medical Student Procedures: n/a Results interpretation: Verified all documentation Verification and Attestation of Medical Student E/M Service A medical student performed and documented this service in my presence. I reviewed and verified all information documented by the medical student and made modifications to such information, when appropriate. I personally performed the physical exam and medical decision making. Isacc Alcocer, Feb 10, 2019,12:55 COURTNEY WILKES MED STUDENT Feb 10, 2019 08:07 ISACC ALCOCER DO Feb 10, 2019 12:55
[2019-02-10 09:44] LABS: HEMOGLOBIN 10.3 G/DL (11.5-16.0); MEAN PLATELET VOLUME 10.5 FL (7.4-10.4); RED CELL DISTRIBUTION WIDTH 14.3 % (10.0-14.5); WHITE BLOOD COUNT 5.4 10^3/uL (4.3-11.0)
--- NOTE | 2019-02-10 10:55 | Discharge Summary ---
Diagnosis/Chief Complaint Date of Admission Feb 08, 2019 at 9:22 pm Date of Discharge Discharge Date: Feb 10, 2019 Admission Diagnosis Gastroenteritis Primary Care No,Local Physician Discharge Summary Discharge Physical Exam Allergies: Coded Allergies: latex (Verified Allergy, Unknown, 02/09/19) Vitals & I&Os Vital Signs Date Time Temp Pulse Resp B/P (MAP) Pulse Ox O2 Delivery O2 Flow Rate FiO2 02/10/19 08:06 Room Air 02/10/19 08:00 36.2 75 18 112/72 (85) 98 General Appearance: No Apparent Distress, WD/WN, Obese Cardiovascular: Regular Rate, Rhythm, No Murmur Gastrointestinal: Normal Bowel Sounds, Soft Neurologic/Psychiatric: Alert, Oriented x3, Normal Mood/Affect Hospital Course Pt is a 24yoCF who was admitted to observation due to abdominal pain and leukocytosis. Surgery was consulted due to RLQ pain persistence despite IVF and pain medication to rule out appendicitis. Surgery reviewed CT scan and deemed not a surgical candidate. I did discuss with OB as well and again per CT scan they deemed not concerning for ovarian torsion. She improved and symptoms were likely due to virla gastroenteritis. She was requesting discharge home on day of dicharge. She tolerated a diet well and is to follow up with her PCP in [place] to follow up this hospital stay. 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 Pending Labs Laboratory Tests 02/10/19 09:35: White Blood Count 5.4, Red Blood Count 3.63, Hemoglobin 10.3, Hematocrit 32, Mean Corpuscular Volume 87, Mean Corpuscular Hemoglobin 28, Mean Corpuscular Hemoglobin Concent 33, Red Cell Distribution Width 14.3, Platelet Count 255, Mean Platelet Volume 10.5 Discussion & Recommendations Discharge Planning: <30 minutes discharge planning Discharge Instructions to patient/family Please see electronic discharge instructions given to patient. Clinical Quality Measures DVT/VTE Risk/Contraindication: Risk Factor Score Per Nursin RFS Level Per Nursing on Admit: 4+=Very High CINTHIA FOURNIER MD Feb 10, 2019 10:55 am
--- NOTE | 2019-02-10 10:57 | Discharge Inst-Simple/Standard ---
Discharge Inst-Standard Reconcile Patient Problems Problems Reviewed?: Yes Patient Instructions/Follow Up Plan of Care/Instructions/FU: Please continue to take your home medications as written. You can use tylenol and ibuprofen for pain at home. please follow up with your PCP in the next week to follow up this hospital stay. Activity as Tolerated: Yes Discharge Diet: No Restrictions Return to The Hospital For: abdominal pain, chest pain, fever, no BM or gas for over 24 hours, if you feel you are getting worse. CINTHIA FOURNIER MD Feb 10, 2019 10:57 am
[2019-02-10 12:00] VITALS: BP 105/66
[2019-02-10 16:10] VITALS: BP 112/68
[2019-02-10] MEDS: NICOTINE 14 MG (NICODERM) PATCH TD SCH (20:16)
[2019-02-10] MEDS: cefTRIAXone 1,000 MG/SWFI 10 ML IV PUSH IV SCH ×2 (20:16)
[2019-02-10 20:50] VITALS: BP 103/69
[2019-02-11 00:09] VITALS: BP 124/60
[2019-02-11] MEDS: NS IV 1000 ML 1,000 ML IV SCH ×2 (00:12→09:18)
[2019-02-11 04:15] VITALS: BP 100/69
--- NOTE | 2019-02-11 06:26 | Progress Note - Surgery ---
Subjective Date Seen by a Provider: Feb 11, 2019 Time Seen by a Provider: 06:24 Subjective/Events-last exam Patient feeling better. Had some discomfort with diet yesterday, then got better. No abdominal pain now. Denies n/v fever sweats chills shortness of breath or chest painn. Focused Exam Lactate Level 02/08/19 22:19: Lactic Acid Level 0.90 Objective Exam Vital Signs Date Time Temp Pulse Resp B/P (MAP) Pulse Ox O2 Delivery O2 Flow Rate FiO2 02/11/19 04:15 36.4 60 18 100/69 (79) 97 Room Air 02/11/19 01:00 83 02/11/19 00:09 36.7 87 18 124/60 (81) 97 Room Air 02/10/19 20:50 36.4 72 16 103/69 (80) 99 Room Air 02/10/19 20:00 Room Air 02/10/19 19:46 87 02/10/19 16:10 35.4 68 18 112/68 (83) 100 Room Air 02/10/19 13:00 66 02/10/19 12:00 36.3 85 18 105/66 (79) 98 Room Air 02/10/19 08:06 Room Air 02/10/19 08:00 36.2 75 18 112/72 (85) 98 Room Air 02/10/19 07:00 68 I & O 02/11/19 07:00 Intake Total 2290 ml Balance 2290 ml Capillary Refill : Less Than 3 SecondsLess Than 3 Seconds General Appearance: No Apparent Distress, Obese HEENT: PERRL/EOMI Neck: Normal Inspection, Non Tender, Supple Respiratory: Chest Non Tender, No Accessory Muscle Use, No Respiratory Distress Cardiovascular: Regular Rate, Rhythm Peripheral Pulses: 2+ Dorsalis Pedis (R), 2+ Left Dors-Pedis (L), 2+ Radial Pulses (R), 2+ Radial Pulses (L) Gastrointestinal: non tender, soft, no organomegaly; No tenderness Extremity: Non Tender, No Calf Tenderness Neurologic/Psychiatric: Alert, Oriented x3, Normal Mood/Affect Skin: Normal Color, Warm/Dry Lymphatic: No Adenopathy Results Lab Laboratory Tests 02/10/19 09:35: White Blood Count 5.4, Red Blood Count 3.63L, Hemoglobin 10.3L, Hematocrit 32L, Mean Corpuscular Volume 87, Mean Corpuscular Hemoglobin 28, Mean Corpuscular Hemoglobin Concent 33, Red Cell Distribution Width 14.3, Platelet Count 255, Mean Platelet Volume 10.5H Microbiology 02/08/19 Blood Culture - Preliminary, Resulted No growth 02/08/19 Urine Culture - Final, Complete 3 or more isolates Assessment/Plan Assessment/Plan Assessment/Plan Periumbilical abdominal pain UTI Possible enteritis patient feeling better. diet as tolerates if tolerates okay to dc from surgical standpoint Clinical Quality Measures DVT/VTE Risk/Contraindication: Risk Factor Score Per Nursin RFS Level Per Nursing on Admit: 4+=Very High EDWARD PRETTY DO Feb 11, 2019 06:26
[2019-02-11 08:00] VITALS: BP 139/90
[2019-02-11] MEDS: NICOTINE 14 MG (NICODERM) PATCH TD SCH (08:45)
[2019-02-11] MEDS ORDERED: LEVOTHYROXINE (09:25)
--- NOTE | 2019-02-11 09:25 | NUR ---
SPOKE WITH THE PT AND WAS TOLD SHE TAKES A THYROID MEDICATION THAT STARTS WITH AN "L" TWICE DAILY AND SHE TOOK THE HIGHEST DOSE THERE WAS. WHEN ASKED WHICH PHARMACY SHE FILLED AT SHE SAID [facility] (PT IS FROM [facility]). WHEN I CALLED [facility] THEY HAD NOT FILLED ANYTHING SINCE 2016. ON 01-10-2017 THEY FILLED LEVOTHYROXINE 137MCG ONCE DAILY. I THEM RETURNED TO THE PT ROOM TO GET CLARIFICATION ON WHERE SHE GETS HER MEDS. SHE SAID SOMEONE ELSE PICKED IT UP LAST TIME AND SHE THINKS THEY GOT IT FROM EITHER [facility] OR [facility]. I CALLED BOTH THOSE PHARMACIES AND THEY DIDNT HAVE ANY PROFILES FOR THIS PT. I THEM ASKED THE PT WHAT DR SHE USES (SO I COULD POSSIBLY TRACK DOWN HER PHARMACY) BUT SHE WAS UNSURE AND SAID IT WAS A CLINIC. DUE TO THESE REASONS I WAS UNABLE TO COMPLETE THE MED REC.
[2019-02-11] MEDS ORDERED: CEFD300C3 PO (09:33)
[2019-02-11 10:15] VITALS: BP 139/90
--- NOTE | 2019-02-11 10:15 | NUR ---
SEAMUS ERNANDEZ demonstrates understanding of discharge instructions and accurately returns instructions upon questioning. Copy of Post-Discharge Instructions and Medication Discharge Instructions given to PT. SEAMUS ERNANDEZ is able to manage continuing needs after discharge. Patients belongings returned to PT. Skin dry and intact; no breakdown noted. Patient discharged from [facility] on 02/11/19 at 1015. SEAMUS ERNANDEZ left floor via , accompanied by STAFF.
--- NOTE | 2019-02-11 14:45 | Discharge Summary ---
Discharge Summary Hospital Course Was the Problem List Reviewed?: Yes Hospital Course Date of Admission: Feb 08, 2019 at 21:22 Admission Diagnosis : Gastroenteritis Family Physician/Provider: Vivienne,Local Physician Date of Discharge: 02/11/19 Discharge Diagnosis: Viral gastroenteritis Hospital Course: Pt is a 24yoCF who was admitted to observation due to abdominal pain and l eukocytosis. Surgery was consulted due to RLQ pain persistence despite IVF and pain medication to rule out appendicitis. Surgery reviewed CT scan and deemed not a surgical candidate. I did discuss with OB as well and again per CT scan they deemed not concerning for ovarian torsion. She improved and symptoms were likely due to viral gastroenteritis. Her mother is going to drive her home to [facility]. She tolerated a diet well and is to follow up with her PCP in [place] to follow up this hospital stay. Labs and Pending Lab Test: Microbiology 02/08/19 Blood Culture - Preliminary, Resulted No growth 02/08/19 Urine Culture - Final, Complete 3 or more isolates Home Meds Active Cefdinir 300 Mg Capsule 300 Mg PO BID 3 Days Reported [Levothyroxine] Assessment/Pt Instructions Take medications as prescribed. Follow up with your PCP. Return with worsening pain or if you feel like you are getting worse. Discharge Planning: <30 minutes discharge planning Discharge Instructions Discharge Diet: No Restrictions Activity as Tolerated: Yes Consultations Surgery Discharge Physical Examination Vital Signs Vital Signs Date Time Temp Pulse Resp B/P (MAP) Pulse Ox O2 Delivery O2 Flow Rate FiO2 02/11/19 10:15 36.8 58 18 139/90 97 Room Air General Appearance: No Apparent Distress, WD/WN HEENT: PERRL/EOMI Respiratory: Lungs Clear, Normal Breath Sounds, No Respiratory Distress Cardiovascular: Regular Rate, Rhythm, No Edema, No Murmur Gastrointestinal: Normal Bowel Sounds, Non Tender, Soft Extremity: Normal Inspection, Non Tender Skin: Normal Color, Warm/Dry Neurologic/Psychiatric: Alert, Oriented x3, No Motor/Sensory Deficits, Normal Mood/Affect Allergies: Coded Allergies: latex (Verified Allergy, Unknown, 02/09/19) Discharge Summary Date of Admission Feb 08, 2019 at 21:22 Date of Discharge Feb 11, 2019 at 10:15 Discharge Date: Feb 11, 2019 Discharge Time: 10:15 Admission Diagnosis Gastroenteritis Consults/Procedures Consulations Surgery Discharge Diagnosis Viral gastroenteritis Clinical Quality Measures DVT/VTE Risk/Contraindication: Risk Factor Score Per Nursin RFS Level Per Nursing on Admit: 4+=Very High TOMI KEY MD Feb 11, 2019 14:45
[2019-02-12] MEDS ORDERED: PATCH REMOVAL TP SCH (09:00)
== END 2019-02-11 10:15 | disposition home or self-care (01) ==
LOC: ER 16:15 → 4TH 21:22
PROVIDERS: ADMIT Family Medicine; ATTEND Family Medicine
DX: A08.4 Viral intestinal infection, unspecified (principal); A41.9 Sepsis, unspecified organism; N39.0 Urinary tract infection, site not specified; E03.9 Hypothyroidism, unspecified; R00.0 Tachycardia, unspecified; F17.210 Nicotine dependence, cigarettes, uncomplicated; Z79.899 Other long term (current) drug therapy; Z91.040 Latex allergy status; Z82.61 Family history of arthritis; Z83.6 Family history of other diseases of the respiratory system
CPT/HCPCS: 36415; 74177; 80048; 80053; 81000; 83605; 83690; 84703; 85007; 85025; 85027; 86141; 87040; 87088; 87186; 96361; 96374; 96375; G0378